=== PATIENT | female | born 1980 | race Caucasian/White ===

== ENCOUNTER 2020-09-15 16:33 | Emergency (ER) | payer OTHER, SELFPAY ==
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
[2020-09-15 16:39] VITALS: BP 147/82; PULSE 88; RESP 18; TEMP 36.8; O2SAT 100
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
--- NOTE | 2020-09-15 19:23 | PC.NURSE ---
received report from Radha RICE. patient in CT now.
[2020-09-15] MEDS: ACETAMINOPHEN 500 MG TABLET 1000 MG PO (19:36)
[2020-09-15] MEDS: diazePAM INJ (*CRX) 10 MG/2 ML SYRINGE 5 MG IM (19:37)
--- NOTE | 2020-09-15 19:40 | PC.NURSE ---
back from CT. medications given as ordered. updated on current treatment plan and expected wait time.
== END 2020-09-15 21:22 | disposition home or self-care (01) ==
PROVIDERS: Emergency Provider Emergency Medicine
DX: S16.1XXA Strain of muscle, fascia and tendon at neck level, initial encounter (principal); I10 Essential (primary) hypertension; M47.812 Spondylosis without myelopathy or radiculopathy, cervical region; M47.814 Spondylosis without myelopathy or radiculopathy, thoracic region; V43.52XA Car driver injured in collision with other type car in traffic accident, initial encounter
CPT/HCPCS: 72125; 72128; 96372; 99284; A9270; J3360

== ENCOUNTER 2023-08-11 08:59 | Emergency (ER) | payer BC, SELFPAY ==
--- NOTE | 2023-08-11 09:07 | ED.GENADULT ---
HPI - General Adult General Chief complaint: Abdominal Pain Stated complaint: Menstrual Cramping Time Seen by Provider: 08/11/23 09:16 Source: patient, RN notes reviewed and old records reviewed Mode of arrival: ambulatory Limitations: no limitations History of Present Illness HPI narrative: 43-year-old female presents to the [facility] with complaints lower abdominal pain. Denies any urinary symptoms, frequency, urgency or burning. No CVA tenderness. Denies chances of STDs. Patient states that she had her menstrual period for 14 days, recently finished and for the last 3-4 days has had increased discomfort in the lower abdomen. Pain 10/10 in the lower abdomen today. Denies any urinary symptoms Surgical history includes tubal ligation and cholecystectomy Related Data Home Medications Medication Instructions Recorded Confirmed No Home Medications 08/11/23 08/11/23 Allergies Allergy/AdvReac Type Severity Reaction Status Date / Time Sulfa (Sulfonamide Allergy Severe ??/REACTION--- Verified 08/11/23 11:40 Antibiotics) CHILD morphine Allergy Unknown Other Verified 08/11/23 11:40 PENICIILIN Allergy Severe ???REACTION-- Uncoded 08/11/23 11:40 CHILD Review of Systems Review of Systems: All systems reviewed & are unremarkable except as noted in HPI and below Constitutional: Constitutional: Reports no additional constitutional complaints Eyes: Eyes: Reports no additional eye complaints ENT: Reports system reviewed and no additional complaints, except as documented Cardiovascular: Cardiovascular: Reports no additional cardiovascular complaints, Denies chest pain and Denies dyspnea Respiratory: Respiratory: Reports no additional respiratory complaints, Denies chest congestion, Denies cough and Denies dyspnea Gastrointestinal: Gastrointestinal: Reports as per HPI, Reports abdominal pain (Low abdominal), Denies nausea and Denies vomiting Genitourinary: Genitourinary: Reports no additional female genitourinary complaints Musculoskeletal: Musculoskeletal: Reports no additional musculoskeletal complaints Integumentary/Breasts: Skin/Breast: Reports system reviewed and no additional complaints, except as docu Neurologic: Reports system reviewed and no additional complaints, except as documented Psychiatric: Psychiatric: Reports no additional psychiatric complaints Allergic/Immunologic: Allergic/Immunologic: Reports no additional allergic/immunologic complaints PMFSH Past Medical History Medical History History of hypertension Surgical History Surgical History History of cholecystectomy History of tonsillectomy History of tubal ligation Comments At the time of my signature, I reviewed and agree with the nursing past medical, surgical, social, and family history. There is no relevant family history pertinent to the patient complaint. Exam Const: General: cooperative, healthy appearing, well developed, alert, acute distress (Pain) moderate, uncomfortable and well nourished Nutritional Appearance: well nourished and obese Orientation/consciousness: patient oriented x3 Limitations: no limitations HENMT: Head: normal to inspection Ears: hearing grossly normal bilaterally and external ears normal Face/Nose/Sinus: Normal external nose present, Normal nares present, Normal nasal mucous membranes and turbinates present, normal facial exam and face symmetric Face and sinus: normal facial exam and face symmetric Eyes: General: appearance normal, both eyes and all related structures Alignment and Position: alignment normal Periorbital: periorbital findings normal Pupils: Equal, round and reactive pupils present EOM: EOMs intact bilaterally Neck: Neck: normal visual inspection, full ROM, no lymphadenopathy and no meningeal signs Chest: Chest palpation & inspection: normal inspection of the chest
[2023-08-11 09:10] VITALS: BP 137/89; PULSE 99; RESP 20; TEMP 37.9; O2SAT 100
== END 2023-08-11 09:30 | disposition short-term general hospital (02) ==
PROVIDERS: Emergency Provider Nurse Practitioner
DX: R10.30 Lower abdominal pain, unspecified (principal); I10 Essential (primary) hypertension
CPT/HCPCS: 99211; 99212; G0463

== ENCOUNTER 2023-08-11 09:48 | Emergency (ER) | payer BC, SELFPAY ==
--- NOTE | ~2023-08-11 | CT_ITS ---
EXAMINATION: CT abdomen pelvis w con INDICATION: Lower abdominal pain TECHNIQUE: Computed tomographic images of the abdomen and pelvis were obtained after the administrati on of 100 cc of Omnipaque 350 intravenous contrast. The dose-length product (DLP) was 1148.22 mGy-cm. Automated exposure control and iterative reconstruction technique were employed. COMPARISON: None available FINDINGS: The lung bases are clear. The heart size is normal. The gallbladder is surgically absent. T here is mild enlargement of the common bile duct and central intrahepatic ducts which is likely due t o post cholecystectomy state. A 6 mm lesion with peripheral enhancement in the right hepatic lobe lik abdon reflects a hemangioma. The spleen, pancreas, and adrenal glands are normal. The kidneys are unrem arkable. No pathologically enlarged abdominal or pelvic lymph nodes are identified. No free intraperi toneal gas or evidence of bowel obstruction. The appendix is normal. A moderate volume of colonic sto ol is present. Tubal ligation clips are noted. IMPRESSION: 1. No CT correlate for the patient's symptoms. Reviewed, dictated and finalized at location B.
[2023-08-11 10:25] VITALS: BP 150/95; PULSE 98; RESP 16; TEMP 36.8; O2SAT 100
[2023-08-11 10:43] LABS: Basophils Absolute Auto 0.1 K/mm3 (0.0-0.1); Basophils Percent Auto 0.5 % (0.2-1.2); Eosinophils Absolute Auto 0.1 K/mm3 (0-0.3); Eosinophils Percent Auto 1.3 % (0-4.4); Hematocrit 45.7 % (37.0-47.0); Hemoglobin 15.2 g/dL (12.0-15.0); Immature Granulocyte Absolute 0.02 K/mm3 (0.00-0.031); Immature Granulocyte Percent A 0.2 % (0-0.5); Lymphocytes Absolute Auto 1.66 K/mm3 (0.9-3.2); Lymphocytes Percent Auto 15.4 % (18.3-44.2); Mean Corpuscular HGB Conc 33.3 g/dl (32-36); Mean Corpuscular Volume 93.3 fl (80-100); Mean Platelet Volume 10.6 fl (7.4-10.4); Monocytes Absolute Auto 0.5 K/mm3 (0.1-0.6); Neutrophils Absolute Auto 8.4 K/mm3 (1.3-6.7); Neutrophils Percent Auto 77.6 % (45.5-73.1); Platelet Count Result 265 k/mm3 (150-375); Red Cell Distribution Width 14.2 % (11.5-14.5); White Blood Count 10.8 K/mm3 (4.5-10.0)
[2023-08-11 10:49] LABS: Alanine Aminotransferase 20 U/L (6-35); Albumin Level 4.4 g/dL (3.5-5.1); Alkaline Phosphatase 37 U/L (38-126); Anion Gap 8 mmol/L (8-16); Aspartate Amino Transferase 22 U/L (14-36); Bilirubin,Total 1.3 mg/dL (0.2-1.3); Blood Urea Nitrogen 9 mg/dL (7-17); Calcium 9.2 mg/dL (8.4-10.2); Carbon Dioxide 24 mmol/L (22-30); Chloride 106 mmol/L (98-107); Estimated CRCL calculation 84 ml/min; Estimated Glomerular Filt Rate > 60; Glucose 89 mg/dL (65-110); Lipase 78 U/L (23-300); Sodium 138 mmol/L (137-145)
[2023-08-11 11:26] LABS: Appearance Urine Clear (Clear); Bacteria Urine None Seen /hpf; Bilirubin Urine Negative (Negative); Blood Urine Negative (Negative); Color Urine Yellow (Yellow); Glucose Urine UA Negative (Negative); Ketones Urine Negative (Negative); Leukocyte Esterase Ur 2+ LEU/UL (Negative); Nitrate Urine Negative (Negative); Non Pathogenic Casts 0-2; Protein Urine Negative (Negative); RBC Urine 0-2 /hpf (0-2); Specific Grav Ur 1.009 (1.001-1.035); Squamous Epithelial Cell Urine None seen /hpf (Few); Urobilinogen Urine 0.2 mg/dL (<2.0)
[2023-08-11 11:36] LABS: Add Urine Microscopic? YES
[2023-08-11 11:40] VITALS: BP 159/79; PULSE 87; RESP 16; O2SAT 99
--- NOTE | 2023-08-11 13:19 | ED.ABDPAIN ---
HPI - Abdominal Pain General Chief Complaint: Abdominal Pain Stated Complaint: abdominal pain Time Seen by Provider: 08/11/23 11:44 History of Present Illness HPI narrative: 43-year-old female presents to the emergency department for evaluation of lower abdominal pain. Patient reports abdominal pain has been ongoing for the last few days. Related Data Home Medications Medication Instructions Recorded Confirmed No Home Medications 08/11/23 08/11/23 Allergies Allergy/AdvReac Type Severity Reaction Status Date / Time Sulfa (Sulfonamide Allergy Severe ??/REACTION--- Verified 08/11/23 11:40 Antibiotics) CHILD morphine Allergy Unknown Other Verified 08/11/23 11:40 PENICIILIN Allergy Severe ???REACTION-- Uncoded 08/11/23 11:40 CHILD Review of Systems Review of Systems: All systems reviewed & are unremarkable except as noted in HPI and below PMFSH Past Medical History Medical History History of hypertension Surgical History Surgical History History of cholecystectomy History of tonsillectomy History of tubal ligation Exam Narrative: APPEARANCE: Well appearing, no pain, no distress, well-nourished. HEAD: normocephalic, atraumatic. EYES: PERRLA/EOMI, conjunctivae clear. NOSE: Normal no drainage EARS:TMS clear with good light reflex. THROAT: Pharynx clear, no exudate. NECK: Supple. No adenopathy, no masses. RESPIRATORY: Airway patent, respirations nonlabored. Clear to auscultation bilaterally, no rales, rhonchi, wheezing. CARDIOVASCULAR: Regular rate and rhythm without murmurs rubs or gallops. ABDOMINAL: Soft, normal bowel sounds, bilateral lower abdominal tenderness to palpation without rebound MUSCULOSKELETAL: Moves all extremities. Strength/ROM intact, No edema, No calf tenderness. NEURO: Alert. Cranial nerves II through XII intact. Grossly intact SKIN: Warm, dry. Normal Color Course Course Emergency Course: 43-year-old female present emergency department for evaluation of lower abdominal pain. Patient is afebrile but does have a leukocytosis of 10.8. Patient hemoglobin is 15.2. No significant abnormalities on the patient's CMP. UA shows no significant evidence of infection. Patient was updated on the results of her work-up. All questions concerns were addressed. Patient was comfortable plan for discharge to home and close follow-up with her primary care physician. Patient was encouraged of a clear liquid diet and to increase MiraLAX. Patient was also encouraged to return to the emergency department if she had any worsening symptoms. Vital Signs Vital signs: Vital Signs Temperature 98.2 F 08/11/23 10:25 Pulse Rate 98 08/11/23 10:25 Respiratory Rate 16 08/11/23 10:25 Blood Pressure 150/95 H 08/11/23 10:25 Pulse Oximetry 100 08/11/23 10:25 Oxygen Delivery Room Air 08/11/23 10:25 Temperature 98.2 F 08/11/23 10:25 Pulse Rate 95 08/11/23 14:16 Respiratory Rate 18 08/11/23 14:16 Blood Pressure 137/86 08/11/23 14:16 Pulse Oximetry 98 08/11/23 14:16 Oxygen Delivery Room Air 08/11/23 10:25 MDM - Abdominal Pain Differential Diagnosis Differential diagnosis: Likely abdominal pain, acute appendicitis, calculus of kidney, constipation, diverticulitis, gastroenteritis, pancreatitis and small bowel obstruction Lab Data Attestation: I reviewed the patient's lab results. 08/11/23 10:33 08/11/23 10:33 Labs: Lab Results 08/11/23 08/11/23 Range/Units 10:33 10:40 WBC 10.8 H (4.5-10.0) K/mm3 RBC 4.90 (4.2-5.4) M/mm3 Hgb 15.2 H (12.0-15.0) g/dL Hct 45.7 (37.0-47.0) % MCV 93.3 (80-100) fl MCH 31.0 (26-34) pg MCHC 33.3 (32-36) g/dl RDW 14.2 (11.5-14.5) % Plt Count 265 (150-375) k/mm3 MPV 10.6 H (7.4-10.4) fl Immature Gran % (Auto) 0.2 (0-0.5) % Neut % (Auto) 77.
[2023-08-11 14:16] VITALS: BP 137/86; PULSE 95; RESP 18; O2SAT 98
== END 2023-08-11 14:26 | disposition home or self-care (01) ==
PROVIDERS: Emergency Provider Emergency Medicine
DX: R10.30 Lower abdominal pain, unspecified (principal); I10 Essential (primary) hypertension; Z90.49 Acquired absence of other specified parts of digestive tract
CPT/HCPCS: 36415; 74177; 80053; 81001; 81025; 83690; 85025; 87077; 87086; 87088; 99284; Q9967